=== PATIENT | female | born 2005 | race Asian ===

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

== ENCOUNTER 2024-03-26 09:20 | Outpatient (CLI) | payer OTHER, SELFPAY ==
[2024-03-27 07:39] LABS: Kit Draw Collected
== END 2024-03-26 09:21 | disposition home or self-care (01) ==
LOC: ANHGOSHLAB 09:21
PROVIDERS: PCP Family Medicine; Visit Provider Student in an Organized Health Care Education/Training Program
DX: R53.83 Other fatigue (principal); Z13.0 Encounter for screening for diseases of the blood and blood-forming organs and certain disorders involving the immune mechanism
CPT/HCPCS: 36415